=== PATIENT | female | born 1950 | race Caucasian/White ===

== ENCOUNTER 2018-08-17 13:56 | Day surgery (SDC) | payer MEDICARE, OTHER, SELFPAY ==
[2018-08-12 07:43] VITALS: BMI 43.5
[2018-08-17] VITALS (12 sets, daily range): BP systolic 113–155; BP diastolic 45–82; PULSE 68–98; RESP 10–18; TEMP 36.1–36.6; O2SAT 90–96; BMI 43.4
[2018-08-17] MEDS: LACTATED RINGERS 1,000 ML 42 ML IV ×2 (14:50→17:15)
--- NOTE | 2018-08-17 15:42 | PM.PREOP ---
Pre-operative Note Interval Note History & Physical reviewed/Exam performed by Physician: Yes Changes to H&P: No
[2018-08-17] MEDS: CEFAZOLIN VIAL 3 GM in SODIUM CHLORIDE 0.9% 100 ML 200 ML IV (15:57)
[2018-08-17] MEDS: BUPIVACAINE 0.5% W/ EPI (PF) VIAL 30 ML INJ (16:28)
--- NOTE | 2018-08-17 16:32 | SUR.OPER ---
Beach chair on padded OR bed. Head on gel donut secured with tape over gauze. Non-operative arm secured <90 degrees abduction on padded arm board. Pillow under knees. Safety belt at thigh. Cloth tape over blanket over lower legs.
--- NOTE | 2018-08-17 17:26 | PM.OP.1 ---
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 Open reduction and fixation of malunited greater tuberosity fracture 2. Suprascapular nerve block by surgeon for postoperative pain management. Same procedure as scheduled: Yes Indications: The patient is a 68-year-old woman who has sustained a fall with a greater tuberosity fracture on the left. This healed in a malunited position and has subsequently caused impingement when the patient raises her arm. She has failed non operative management with physical therapy and injections. After discussion the risks benefits and alternatives she has requested to proceed with open reduction and internal fixation of the malunited fragment. She is aware that this may take the form of removal of the prominence of her greater tuberosity and fixation of the rotator cuff into the bed. The risks benefits and alternatives of this procedure were discussed with her. Risks discussed included but were not limited to failure of the rotator cuff to heal, stiffness, infection, nerve damage, deep venous thrombosis, pulmonary embolism, stroke, myocardial infarction, permanent paralysis and . Surgeon: Jah Cantu Yarn Bleaching Machine Operator: Jacqueline Jules Click Yes if Unassisted: No Anesthesia Type: General, Peripheral nerve block and Local Operative Notes Findings: Prominence of the greater tuberosity immediately posterior to the biceps groove. Closure Type: primary Specimen(s): none sent Prosthetic devices, grafts, tissues, transplants, or devices: Implants used in this procedure included an Arthrex SpeedBridge implant system with BioComposite SwivelLock anchors. Applied: implant(s) Estimated Blood Loss (mL): 25 Blood products transfused: none Procedure in detail: The patient was seen in the preoperative area where she identified the left shoulder as the operative site and this was marked with my initials. She received preoperative antibiotics within appropriate 1st generation cephalosporin was taken to the operating room and placed on the operating room table in the supine position where she underwent a general anesthetic. She was then repositioned in the ?beach chair? position using the standard table. The left shoulder was protracted using a bump behind the scapula. All pressure points were well-padded. The left arm was prepared for the fingertips to the base the neck with ChloraPrep in the usual fashion and draped through sterile drapes. 10 mL of 0.5% Marcaine with epinephrine was injected into the suprascapular notch area to perform a suprascapular nerve block for postoperative pain control. An approximately 6 cm incision was created overlying the anterolateral corner of the acromion in Nelson's lines. Subcutaneous flaps were raised. The deltoid was split in line with its fibers and this was carried up onto the top of the acromion and the fascia was elevated using electrocautery. An oscillating saw was used to perform an acromioplasty to create more room for the repair. I palpated the biceps groove and the prominent greater tuberosity just behind it. A 2 cm tear was created in the rotator cuff with 1 limb of the tear going into the rotator interval and another limb going in line with the pull of the cuff about 2 cm posteriorly. A flap of rotator cuff was elevated off the prominent greater tuberosity. This was trimmed down using a rotating power bur. I checked multiple times by palpation until it felt like this was even with the remainder of the greater tuberosity. The rotator cuff was then fixed back down onto the bed that had been created with the bur. Two SwivelLock anchors were placed medially with suture tapes. The tapes were placed through the rotator cuff overlying the articular margin. The tapes were then divided and 1 limb from each tape was placed through each of the lateral suture anchors which were placed about cm and half further down the humerus laterally. This nicely reapposed the flap of rotator cuff that had been elevated. A #2 FiberWire suture was then used to close the rotator interval and the posterior incision in the cuff with a [id number] suture. The wound was copiously irrigated. The deltoid was reapproximated to the acromion using Ethibond sutures placed through bone tunnels in the acromion and the split in the deltoid was closed with a running 0 Vicryl. The subcutaneous was closed with interrupted 3 O Vicryl the skin with a running 4 0 Monocryl and Steri-Strips. Subcutaneous tissues were injected with 0.5% Marcaine with epinephrine for postoperative pain control in addition to the block. An Aquacel Ag dressing was applied and the patient was transported to the recovery room in good condition having tolerated the procedure well. Complications: none Condition: stable Disposition: PACU Plan for aftercare: The patient will be maintained on a standard medium size rotator cuff tear protocol with 6 weeks of passive range of motion and sling wear. She will be discharged home later this evening.
[2018-08-17] MEDS: fentaNYL 100 MCG/2 ML INJ 50 MCG IV (18:04)
--- NOTE | 2018-08-17 18:09 | SUR.PHASEI ---
attempted to place pt on her cpap, wrong connecter brought by pt and verified by . Pt placed on nasal cannula 02.. Pain treated with fentanyl.
[2018-08-17] MEDS: OXYCODONE/ACETAMINOPHEN 5/325 TABLET 1 TAB PO ×2 (18:15→18:42)
[2018-08-17] MEDS: hydrOXYzine pamoate 25 MG CAPSULE PO (18:15)
--- NOTE | 2018-08-17 18:17 | SUR.PHASEI ---
Pt still having pain, medicated with percocet and vistaril after apple sauce tolerated.
--- NOTE | 2018-08-17 18:18 | SUR.PHASEI ---
Pt has sats 94-97% on /l of .
--- NOTE | 2018-08-17 19:07 | SUR.PHASEII ---
Pt brought to opd, brought in, d/c instructions discussed, both voiced an understanding. Dressing to l shoulder remained c/d/i, neuro assessment to l hand unchanged as well. Pt assisted to dress, and left when ready and left in stable condition.
== END 2018-08-17 17:05 | disposition home or self-care (01) ==
PROVIDERS: Family Provider Specialist; PCP Family Medicine; Visit Provider Orthopaedic Surgery
PROC: (CPT 23630; principal; 2018-08-17 15:45)
DX: S42.252P Displaced fracture of greater tuberosity of left humerus, subsequent encounter for fracture with malunion (principal); S43.005D Unspecified dislocation of left shoulder joint, subsequent encounter; G47.33 Obstructive sleep apnea (adult) (pediatric); E66.9 Obesity, unspecified; I10 Essential (primary) hypertension; M19.90 Unspecified osteoarthritis, unspecified site; Z68.41 Body mass index [BMI] 40.0-44.9, adult
CPT/HCPCS: 23630; J0330; J0690; J1100; J1170; J2405; J2704; J3010

== ENCOUNTER → 2020-06-09 09:01 | Outpatient (CLI) | payer MEDICARE, OTHER, SELFPAY ==
[2020-06-09 10:26] LABS: COVID19 -Nasal RAPID Negative (Negative)
== END ==
PROVIDERS: Family Provider Specialist; PCP Family Medicine; Visit Provider Family Medicine Sleep Medicine
DX: Z01.812 Encounter for preprocedural laboratory examination (principal); Z20.828 Contact with and (suspected) exposure to other viral communicable diseases
CPT/HCPCS: 87635; C9803

== ENCOUNTER → 2020-06-15 12:31 | Outpatient (CLI) | payer MEDICARE, OTHER, SELFPAY ==
[2020-06-15 13:33] LABS: Add Manual Diff / Slide Review NO; Basophils Absolute Auto 0 /uL (0-100); Basophils Percent Auto 0.6 % (0-2); Eosinophils Absolute Auto 200 /uL (0-450); Eosinophils Percent Auto 3.5 % (2-4); Hematocrit 38.6 % (36-46); Hemoglobin 12.4 g/dL (12.0-16.0); Lymphocytes Absolute Auto 2200 /uL (1100-4500); Lymphocytes Percent Auto 31.2 % (25-40); Mean Corpuscular Hemoglobin 26.5 PG (26-34); Mean Corpuscular Volume 82.9 fL (80-100); Monocytes Absolute Auto 300 /uL (0-900); Monocytes Percent Auto 4.1 % (3-14); Neutrophils Absolute Auto 4300 /uL (1500-7000); Neutrophils Percent Auto 60.6 % (50-75); Platelet Count 331 X10^3/uL (150-400); Red Blood Cell Count 4.66 X10^6/uL (4.0-5.2); Red Cell Distribution Width 15.2 % (11.6-14.8); White Blood Cell Count 7.1 X10^3/uL (4.5-11.0)
[2020-06-15 13:34] LABS: Bilirubin Urine UA NEGATIVE (NEGATIVE); Color Urine UA YELLOW; Glucose Urine UA NEGATIVE (Negative); Ketones Urine UA NEGATIVE (NEGATIVE); Leukocyte Esterase Urine UA TRACE (NEGATIVE); Nitrite Urine UA NEGATIVE (Negative); Occult Blood Urine UA 1+ (Negative); Protein Urine UA NEGATIVE (Negative); Urobilinogen Urine UA 0.2 E.U./dL (0.2)
[2020-06-15 13:45] LABS: Appearance Urine UA Slightly Cloudy; pH Urine UA 6.5 (4.5-8.0)
[2020-06-15 13:47] LABS: RBC Urine 1-5/HPF (0-5/HPF); Squamous Epithelial Cell Urine 1-5 /HPF (0-5/HPF); WBC Urine 1-5/HPF (0-5/HPF)
[2020-06-15 13:48] LABS: Bacteria Urine Few (2-10); Culture Indicated Urine Specimen Cultured
[2020-06-15 13:52] LABS: Alanine Aminotransferase 23 IU/L (<35); Albumin Globulin Ratio 1.2 (1.0-2.8); Alkaline Phosphatase 130 U/L (38-126); Aspartate Aminotransferase 28 IU/L (14-36); BUN Creatinine Ratio 14.3 (6-22); Bilirubin Total 0.2 mg/dL (0.2-1.3); Blood Urea Nitrogen 16 mg/dL (7-17); Calcium 9.4 mg/dL (8.4-10.2); Carbon Dioxide 30 mmol/L (22-32); Chloride 106 mmol/L (98-107); Estimated Glomerular Filt Rate 48.2 mL/min (>60); Globulin 3.3 g/dL (1.7-4.1); Glucose 124 mg/dL (80-110); HEMOLYSIS < 15 (0-50); Potassium 4.7 mmol/L (3.4-5.1); Sodium 139 mmol/L (137-145); Total Protein 7.3 g/dL (6.3-8.2)
== END ==
PROVIDERS: Family Provider Specialist; PCP Family Medicine; Referring Provider Family Medicine; Visit Provider Family Medicine
DX: R19.7 Diarrhea, unspecified (principal); Z90.710 Acquired absence of both cervix and uterus; R10.9 Unspecified abdominal pain
CPT/HCPCS: 36415; 80053; 81001; 85025; 87086

== ENCOUNTER → 2020-06-19 12:58 | Outpatient (CLI) | payer MEDICARE, OTHER, SELFPAY ==
--- NOTE | 2020-06-19 13:06 | DI.CT.S_ITS ---
PROCEDURE: CT ABDOMEN PELVIS WO/W CON INDICATIONS: Abdominal pain and diarrhea TECHNIQUE: After the administration of oral contrast, 5 mm thick sections acquired from the diaphragms to the iliac crests. After the administration of intravenous contrast, 5 mm thick sections acquired from the diaphragms to the symphysis. 5 mm thick coronal and sagittal reformats were acquired. For radiation dose reduction, the following was used: automated exposure control, adjustment of mA and/or kV according to patient size. COMPARISON: None. FINDINGS: Image quality: Excellent. ABDOMEN: Lung bases: Lung bases are clear except for mild alveolar stranding at the medial right lung base. This may reflect scarring from a prior inflammatory event.. Heart size is normal. Solid organs: Liver is moderately enlarged in size and normal in enhancement, but there is diffuse fatty infiltration throughout the liver.. Gallbladder appears normal . Biliary system is non-dilated. Pancreas enhances at the pancreatic tail but there is pancreatic head and uncinate process fatty atrophy, without pancreatic ductal distension or pancreatic parenchymal calcifications.. Spleen is normal in size and enhancement. No adrenal nodules. Both kidneys are normal in size. No hydronephrosis or nephrolithiasis. Bowel and peritoneum: Stomach, small and large bowel loops are normal in caliber and wall thickness. No free fluid or air. Moderate colonic obstipation. Nodes and vessels: No retroperitoneal or mesenteric adenopathy by size criteria. Aorta and inferior vena are normal in caliber. Miscellaneous: No ventral hernias. PELVIS: Genitourinary: Bladder wall thickness is normal. Miscellaneous: No inguinal hernias or adenopathy. Moderate colonic obstipation, right greater than left. Bones: No suspicious bony lesions. No vertebral body compression fractures. IMPRESSION: Hepatomegaly with generalized fatty infiltration throughout the liver. No splenomegaly is seen. Note is made of generalized fatty atrophy of the pancreatic head and uncinate process and the pancreatic neck area. Pancreatic ductal distension or calcifications are not seen. Asymmetric colonic obstipation, right greater than left. No obstructive mass is found. Dictated by: Pepe Jernigan M.D. on 06/19/2020 at 14:54 Approved by: Pepe Jernigan M.D. on 06/19/2020 at 14:59
== END ==
PROVIDERS: Family Provider Specialist; PCP Family Medicine; Referring Provider Family Medicine; Visit Provider Family Medicine
DX: R19.7 Diarrhea, unspecified (principal); R10.9 Unspecified abdominal pain; K59.00 Constipation, unspecified; K76.0 Fatty (change of) liver, not elsewhere classified; Z90.710 Acquired absence of both cervix and uterus
CPT/HCPCS: 74178; Q9967

== ENCOUNTER → 2020-11-29 11:17 | Outpatient (CLI) | payer MEDICARE, OTHER, SELFPAY ==
[2020-11-29 12:24] LABS: Alanine Aminotransferase 45 IU/L (<35); Albumin Globulin Ratio 1.4 (1.0-2.8); Alkaline Phosphatase 87 U/L (38-126); Aspartate Aminotransferase 27 IU/L (14-36); BUN Creatinine Ratio 17.2 (6-22); Bilirubin Total 0.3 mg/dL (0.2-1.3); Blood Urea Nitrogen 33 mg/dL (7-17); Carbon Dioxide 21 mmol/L (22-32); Chloride 106 mmol/L (98-107); Estimated Glomerular Filt Rate 25.9 mL/min (>60); Globulin 2.9 g/dL (1.7-4.1); Glucose 110 mg/dL (80-110); HEMOLYSIS < 15 (0-50); Potassium 5.2 mmol/L (3.4-5.1); Sodium 136 mmol/L (137-145); Total Protein 6.9 g/dL (6.3-8.2)
== END ==
PROVIDERS: Family Provider Specialist; PCP Family Medicine; Referring Provider Family Medicine; Visit Provider Family Medicine
DX: N17.9 Acute kidney failure, unspecified (principal)
CPT/HCPCS: 36415; 80053

== ENCOUNTER 2021-01-12 16:37 | Emergency (ER) | payer MEDICARE, OTHER, SELFPAY ==
[2021-01-12 16:56] VITALS: BP 172/92; PULSE 114; RESP 20; TEMP 36.5; O2SAT 98; BMI 44.6
[2021-01-12 17:40] LABS: Add Manual Diff / Slide Review NO; Basophils Absolute Auto 100 /uL (0-100); Basophils Percent Auto 0.9 % (0-2); Eosinophils Absolute Auto 200 /uL (0-450); Eosinophils Percent Auto 1.8 % (2-4); Hematocrit 36.6 % (36-46); Hemoglobin 12.1 g/dL (12.0-16.0); Lymphocytes Absolute Auto 2200 /uL (1100-4500); Lymphocytes Percent Auto 23.1 % (25-40); Mean Corpuscular Volume 87.9 fL (80-100); Monocytes Absolute Auto 400 /uL (0-900); Monocytes Percent Auto 3.9 % (3-14); Neutrophils Absolute Auto 6600 /uL (1500-7000); Neutrophils Percent Auto 70.3 % (50-75); Platelet Count 328 X10^3/uL (150-400); Red Blood Cell Count 4.17 X10^6/uL (4.0-5.2); Red Cell Distribution Width 14.2 % (11.6-14.8); White Blood Cell Count 9.4 X10^3/uL (4.5-11.0)
[2021-01-12 18:01] LABS: BUN Creatinine Ratio 15.2 (6-22); Blood Urea Nitrogen 16 mg/dL (7-17); Calcium 9.9 mg/dL (8.4-10.2); Carbon Dioxide 27 mmol/L (22-32); Chloride 107 mmol/L (98-107); Glucose 146 mg/dL (80-110); HEMOLYSIS < 15 (0-50); Potassium 4.1 mmol/L (3.4-5.1); Sodium 142 mmol/L (137-145)
[2021-01-12 18:37] VITALS: BP 146/68; PULSE 100; RESP 18; TEMP 36.6; O2SAT 100
--- NOTE | 2021-01-12 19:29 | ED_ITS ---
HPI - General Adult General Chief complaint: Vaginal Bleeding Stated complaint: VAGINAL AND RECTAL BLEEDING Time Seen by Provider: 01/12/21 19:09 Source: patient Mode of arrival: Ambulatory Limitations: no limitations History of Present Illness HPI narrative: 70-year-old female who has had a history of endometriosis and vaginal bleeding. She has had a total hysterectomy and several months after having this started having vaginal bleeding once again. She has seen her telecom manager doctor for this and states that the endometriosis has returned inside of her vagina. Since this time she has developed a DVT/pulmonary embolism. She is on anticoagulation for this. Over the past day or so she has also started noticing blood in her stool. She states that there was some concern previously about having endometriosis in her colon but this is never been definitively diagnosed. She denies any chest pain. No shortness of breath. No belly pain. No vomiting. No urinary symptoms. No skin rashes. Related Data Previous Rx's Medication Instructions Recorded ropinirole 0.5 mg tablet 0.5 mg PO DAILY #90 tab 06/20/20 nortriptyline 50 mg capsule See Rx Instructions .ROUTE 07/18/20 .COMPLEX #180 cap omeprazole 40 mg capsule,delayed See Rx Instructions .ROUTE 07/18/20 release .COMPLEX #90 cap NS gabapentin 600 mg tablet 1,200 mg PO BEDTIME #180 tab 09/06/20 clobetasol 0.05 % topical ointment See Rx Instructions .ROUTE 10/03/20 .COMPLEX #30 g ropinirole 1 mg tablet See Rx Instructions .ROUTE 11/16/20 .COMPLEX #90 tab albuterol sulfate 90 mcg/actuation 2 puff INHALATION Q6H PRN #8 gram 11/29/20 aerosol inhaler (ProAir HFA) apixaban 5 mg tablet 5 mg PO BID #180 tab 11/29/20 nitroglycerin 0.4 mg sublingual 0.4 mg SUBLINGUAL Q5M PRN #25 tab 12/19/20 tablet (Nitrostat) rosuvastatin 5 mg tablet (Crestor) 5 mg PO DAILY #90 tab 12/19/20 Allergies Allergy/AdvReac Type Severity Reaction Status Date / Time chlorhexidine Allergy Severe rash, Verified 01/12/21 17:01 [From Hibiclens] burning sensation, joint pain Sulfa (Sulfonamide Allergy Unknown flu-like Verified 01/12/21 17:01 Antibiotics) symptoms fentanyl AdvReac Severe HAS NO Verified 01/12/21 17:01 REACTION megestrol [From Megace] AdvReac Severe embolism Verified 01/12/21 17:01 Review of Systems Constitutional Constitutional: Denies fever(s) Eyes Eyes: Reports system reviewed and no additional complaints, except as documented ENT Ears, Nose, Mouth, and Throat: Reports system reviewed and no additional comp laints, except as documented Cardiovascular Cardiovascular: Reports system reviewed and no additional complaints, except as documented Respiratory Respiratory: Reports system reviewed and no additional complaints, except as documented Gastrointestinal Gastrointestinal: Reports as per HPI and Reports system reviewed and no additional complaints, except as documented Genitourinary Genitourinary: Reports as per HPI Musculoskeletal Musculoskeletal: Reports system reviewed and no additional complaints, except as documented Integumentary/Breasts Skin/Breast: Reports system reviewed and no additional complaints, except as documented Neurologic Neurologic: Reports system reviewed and no additional complaints, except as documented Psychiatric Psychiatric: Reports system reviewed and no additional complaints, except as documented Hematologic/Lymphatic On Anticoagulants: Yes Allergic/Immunologic Allergic/Immunologic: Reports system reviewed and no additional complaints, except as documented Patient History Medical History Abdominal pain Acute kidney injury Asthma Bilateral hip pain Blood clots in stool CAD (coronary artery disease) Cervical somatic dysfunction Chronic bilateral low back pain with bilateral sciatica Chronic diarrhea Cough CRPS (complex regional pain syndrome) Diarrhea Dyspareunia Excessive daytime sleepiness Greater trochanteric pain syndrome of left lower extremity HTN (hypertension) Insomnia Left thigh pain Low back pain Lumbar region somatic dysfunction Mitral valve prolapse Mononucleosis Morbid obesity with BMI of 40.0-44.9, adult Neck pain Nocturnal hypoxemia Obstructive sleep apnea of adult Paroxysmal vertigo Pelvic somatic dysfunction Pneumonia Pulmonary embolism, bilateral Restless leg syndrome, controlled Sacral region somatic dysfunction Segmental and somatic dysfunction of abdomen and other regions Shallow breathing Shingles Somatic dysfunction of lower extremity Stiff neck Surgical History H/O cervical polypectomy History of hysterectomy History of knee replacement History of tonsillectomy Hx of Achilles tendon repair Status post dilation and curettage Status post endometrial ablation Status post rotator cuff repair Family History Mother Age: 94 Breast cancer Social History marital status: details: to Pepe household members: spouse lives independently: Yes caregiver/support person: No housing: house Smoking Status: Never smoker second hand exposure: Yes (socially) alcohol intake: current substance use type: does not use Smoking Status: Never smoker alcohol intake frequency: a few times a week Alcohol type: wine Substance Use Type: does not use Exam Initial Vital Signs Initial Vital Signs: Vital Signs Temperature 97.7 F 01/12/21 16:56 Pulse Rate 114 H 01/12/21 16:56 Respiratory Rate 20 01/12/21 16:56 Blood Pressure 172/92 H 01/12/21 16:56 Pulse Oximetry 98 01/12/21 16:56 Const General: cooperative and comfortable HENMT Head: normal to inspection and normocephalic Eyes General: appearance normal, both eyes and all related structures Neck Neck: normal visual inspection Resp Effort & Inspection: normal respiratory effort Cardio Rate: regular rate GI Inspection: normal to inspection Skin General: no rashes or lesions noted Neuro General: patient alert, patient awake and moves all extremities Extrem General: normal to inspection Psych Appearance: grossly normal and well kempt Course Orders Ordered: ED Orders 01/12/21 17:27 Basic Metabolic Panel Stat Complete Blood Count AUTO DIFF Stat Type and Screen Stat 01/12/21 19:50 Hemoglobin and Hematocrit Stat Vital Signs Vital signs: Vital Signs - 8 hr 01/12/21 18:37 01/12/21 19:54 01/12/21 20:43 Temperature 97.9 F Pulse Rate 100 H 97 H 97 H Respiratory Rate 18 18 16 Blood Pressure 146/68 H 170/73 H 156/77 H Pulse Oximetry 100 98 98 Medical Decision Making Lab Data Lab results reviewed: Yes I reviewed the patient's lab results. Result diagrams: 01/12/21 19:50 01/12/21 17:27 Labs: Lab Results 01/12/21 01/12/21 01/12/21 Range/Units 17:27 17:27 17:27 WBC 9.4 (4.5-11.0) X10^3/uL RBC 4.17 (4.0-5.2) X10^6/uL Hgb 12.1 (12.0-16.0) g/dL Hct 36.6 (36-46) % MCV 87.9 (80-100) fL MCH 29.0 (26-34) PG MCHC 33.0 (30-36) % RDW 14.2 (11.6-14.8) % Plt Count 328 (150-400) X10^3/uL Neut % (Auto) 70.3 (50-75) % Lymph % (Auto) 23.1 L (25-40) % [place] % (Auto) 3.9 (3-14) % Eos % (Auto) 1.8 L (2-4) % Baso % (Auto) 0.9 (0-2) % Neut # (Auto) 6600 (8143-0479) /uL Lymph # (Auto) 2200 (3798-5605) /uL [place] # (Auto) 400 (0-900) /uL Eos # (Auto) 200 (0-450) /uL Baso # (Auto) 100 (0-100) /uL Sodium 142 (137-145) mmol/L Potassium 4.1 (3.4-5.1) mmol/L Chloride 107 (98-107) mmol/L Carbon Dioxide 27 (22-32) mmol/L BUN 16 (7-17) mg/dL Creatinine 1.05 H (0.52-1.04) mg/dL Estimated GFR 52.0 L (>60) mL/min BUN/Creatinine Ratio 15.2 (6-22) Glucose 146 H (80-110) mg/dL Calcium 9.9 (8.4-10.2) mg/dL Blood Type A Positive Antibody Screen Negative 01/12/21 Range/Units 19:50 WBC (4.5-11.0) X10^3/uL RBC (4.0-5.2) X10^6/uL Hgb 11.5 L (12.0-16.0) g/dL Hct 34.7 L (36-46) % MCV (80-100) fL MCH (26-34) PG MCHC (30-36) % RDW (11.6-14.8) % Plt Count (150-400) X10^3/uL Neut % (Auto) (50-75) % Lymph % (Auto) (25-40) % [place] % (Auto) (3-14) % Eos % (Auto) (2-4) % Baso % (Auto) (0-2) % Neut # (Auto) (4065-1061) /uL Lymph # (Auto) (3737-8538) /uL [place] # (Auto) (0-900) /uL Eos # (Auto) (0-450) /uL Baso # (Auto) (0-100) /uL Sodium (137-145) mmol/L Potassium (3.4-5.1) mmol/L Chloride (98-107) mmol/L Carbon Dioxide (22-32) mmol/L BUN (7-17) mg/dL Creatinine (0.52-1.04) mg/dL Estimated GFR (>60) mL/min BUN/Creatinine Ratio (6-22) Glucose (80-110) mg/dL Calcium (8.4-10.2) mg/dL Blood Type Antibody Screen Urine Dip Bedside Urine Glucose Negative Bedside Urine Bilirubin - Negative Bedside Urine Ketone - Negative Urine Specific Vaughn 1.020 Bedside Urine Occult Blood +++ Bedside Urine pH 6.0 Bedside Urine Protein +/- 15 Bedside Urine Urobilinogen - Negative Bedside Urine Nitrite - Negative Bedside Urine Leukocytes +/- 15 Esterase Point of care testing: Urine Dip Bedside Urine Glucose Negative Bedside Urine Bilirubin - Negative Bedside Urine Ketone - Negative Urine Specific Vaughn 1.020 Bedside Urine Occult Blood +++ Bedside Urine pH 6.0 Bedside Urine Protein +/- 15 Bedside Urine Urobilinogen - Negative Bedside Urine Nitrite - Negative Bedside Urine Leukocytes +/- 15 Esterase MDM Narrative Medical decision making narrative: Patient is nontoxic appearing. Her labs are stable over time here in the emergency department. I feel that we can hold on any radiologic studies for now. No indication for surgical consultation. Will have her continue to take her anticoagulation is I feel right now the benefits of this outweigh the risks. She was given strict return precautions with regard to blood loss. Informed her that she should contact her primary doctor and u lcer telecom manager doctor. She may need a referral to see General surgery to have a colonoscopy. She was given return precautions and follow-up instructions. She expressed understanding agreement. Discharge Plan Departure Patient Disposition: Home Clinical Impression: Vaginal bleeding, Rectal bleeding Instructions: DI for Vaginal Bleeding Activity Restrictions/Additional Instructions: I do recommend that you continue on your anticoagulation. On Friday contact your primary doctor is you will need to discuss the indications for a colonoscopy. Return to the emergency department for any new or worsening symptoms like we discussed. Prescriptions: No Action ropinirole 0.5 mg tablet 0.5 mg PO DAILY Qty: 90 RF: 1 omeprazole 40 mg capsule,delayed release(DR/EC) See Rx Instructions .ROUTE .COMPLEX Qty: 90 RF: 3 nortriptyline 50 mg capsule See Rx Instructions .ROUTE .COMPLEX Qty: 180 RF: 3 gabapentin 600 mg tablet 1,200 mg PO BEDTIME Qty: 180 RF: 1 clobetasol 0.05 % ointment See Rx Instructions .ROUTE .COMPLEX Qty: 30 RF: 3 ropinirole 1 mg tablet See Rx Instructions .ROUTE .COMPLEX Qty: 90 RF: 3 rosuvastatin [Crestor] 5 mg tablet 5 mg PO DAILY Qty: 90 RF: 3 nitroglycerin [Nitrostat] 0.4 mg tablet, sublingual 0.4 mg sublingual Q5M PRN (Reason: chest pain) Qty: 25 RF: 0 apixaban 5 mg tablet 5 mg PO BID Qty: 180 RF: 3 albuterol sulfate [ProAir HFA] 90 mcg/actuation HFA aerosol inhaler 2 puff INHALATION Q6H PRN (Reason: shortness of breath or wheezing) Qty: 8 RF: 5 Referrals: Jonathon Fregoso DO [Primary Care Provider] -
[2021-01-12 19:54] VITALS: BP 170/73; PULSE 97; RESP 18; O2SAT 98
[2021-01-12 19:57] LABS: Hematocrit 34.7 % (36-46); Hemoglobin 11.5 g/dL (12.0-16.0)
[2021-01-12 20:43] VITALS: BP 156/77; PULSE 97; RESP 16; O2SAT 98
== END 2021-01-12 20:44 | disposition home or self-care (01) ==
PROVIDERS: Emergency Medicine; Emergency Provider Emergency Medicine; Family Provider Specialist; PCP Family Medicine
DX: N93.9 Abnormal uterine and vaginal bleeding, unspecified (principal); K62.5 Hemorrhage of anus and rectum; N80.4 Endometriosis of rectovaginal septum and vagina; Z79.01 Long term (current) use of anticoagulants
CPT/HCPCS: 36415; 80048; 81003; 85014; 85018; 85025; 86850; 86900; 86901; 99283

== ENCOUNTER → 2021-02-15 10:25 | Outpatient (CLI) | payer MEDICARE, OTHER, SELFPAY ==
[2021-02-15 10:52] LABS: BUN Creatinine Ratio 18.8 (6-22); Blood Urea Nitrogen 18 mg/dL (7-17); Estimated Glomerular Filt Rate 57.6 mL/min (>60)
== END ==
PROVIDERS: Family Provider Specialist; PCP Family Medicine; Referring Provider Family Medicine; Visit Provider Family Medicine
DX: N17.9 Acute kidney failure, unspecified (principal)
CPT/HCPCS: 36415; 82565; 84520

== ENCOUNTER → 2021-02-16 12:16 | Outpatient (CLI) | payer MEDICARE, OTHER, SELFPAY ==
--- NOTE | 2021-02-16 12:17 | DI.CT.S_ITS ---
PROCEDURE: CT ANGIO CHEST PE PROTOCOL INDICATIONS: f/u PE TECHNIQUE: After the administration of intravenous contrast, 2 mm thick sections acquired from the pulmonary apices to the posterior costophrenic angles. 3-dimensional maximum intensity projection (MIP) coronal and sagittal reformats were then acquired through the thorax. For radiation dose reduction, the following was used: automated exposure control, adjustment of mA and/or kV according to patient size. COMPARISON: [facility], CT, CT ANGIO CHEST PE, 11/21/2020, 17:56. FINDINGS: Lungs: Scattered subsegmental atelectasis and/or scarring. No focal consolidation. Pleura: No pleural effusion or pneumothorax. Heart: Heart size is normal. No pericardial effusion. Chest nodes: Shotty right paratracheal and mediastinal/subcarinal lymph nodes without definite pathologic enlargement by size criteria. Thyroid gland: Negative. Aorta: Normal in size. Pulmonary arteries: There is at least near complete resolution of emboli seen on the prior study. Currently, no definite large or central intraluminal filling defects. There is poor contrast opacification of the segmental and subsegmental arteries, which precludes accurate evaluation. Esophagus: Normal. Upper abdomen: Mildly enlarged portal caval and sheela hepatis lymph nodes as before. Bones: Normal. IMPRESSION: No evidence of pulmonary embolism within the central/large pulmonary arteries. There is poor contrast opacification of the segmental and subsegmental vessels. Scattered subsegmental atelectasis and/or scarring. No focal consolidation. Dictated by: Charles El M.D. on 02/16/2021 at 13:29 Approved by: Charles El M.D. on 02/16/2021 at 13:36
== END ==
PROVIDERS: Family Provider Specialist; PCP Family Medicine; Referring Provider Family Medicine; Visit Provider Family Medicine
DX: I26.99 Other pulmonary embolism without acute cor pulmonale (principal)
CPT/HCPCS: 71275; Q9967

== ENCOUNTER 2023-10-22 09:27 | Day surgery (SDC) | payer MEDICARE, OTHER, SELFPAY ==
[2023-10-16 13:53] VITALS: BMI 44.4
--- NOTE | 2023-10-21 15:25 | P.HP_ITS ---
History of Present Illness History of Present Illness Date Patient Seen: 10/22/23 Chief complaint: Excision of R neck mass Narrative: 73F here for excision of right neck mass. No interval change in health. Stopped Ozepmic and Eliquis as requested. [facility] Medical History (Updated 10/16/23 @ 14:03 by Marsha Travis RN) Anesthesia complication Diabetes type 2, controlled Lipoma of neck Restless leg syndrome due to iron deficiency anemia Hearing loss Bilateral lower extremity edema Acute midline low back pain without sciatica Endometriosis Left thigh pain CAD (coronary artery disease) Blood clots in stool Pulmonary embolism, bilateral Acute kidney injury Chronic diarrhea Somatic dysfunction of lower extremity Segmental and somatic dysfunction of abdomen and other regions Pelvic somatic dysfunction Sacral region somatic dysfunction Lumbar region somatic dysfunction Cervical somatic dysfunction Stiff neck Chronic bilateral low back pain with bilateral sciatica Greater trochanteric pain syndrome of left lower extremity Nocturnal hypoxemia Abdominal pain Diarrhea CRPS (complex regional pain syndrome) Cough Restless leg syndrome, controlled HTN (hypertension) Shallow breathing Insomnia Shingles Mononucleosis Pneumonia Mitral valve prolapse Dyspareunia Asthma Neck pain Paroxysmal vertigo Low back pain Bilateral hip pain Morbid obesity with BMI of 40.0-44.9, adult Excessive daytime sleepiness Obstructive sleep apnea of adult Surgical History History of hysterectomy H/O cervical polypectomy Hx of Achilles tendon repair Status post rotator cuff repair Status post endometrial ablation Status post dilation and curettage History of knee replacement History of tonsillectomy Family History Mother Age: 96 Breast cancer Social History marital status: details: jeri Cantu household members: spouse lives independently: Yes caregiver/support person: No housing: house Smoking Status: Never smoker second hand exposure: Yes (socially) alcohol intake: current substance use type: does not use Meds Home Medications and Allergies Home Medications Medication Instructions Recorded Confirmed Type nitroglycerin 0.4 mg sublingual 0.4 mg sublingual Q5M PRN chest 12/19/20 10/02/23 Rx tablet (Nitrostat) pain #25 tabs Handi Cap Placard #1 ea 03/28/21 10/02/23 Rx Disabled Parking Permit #1 ea 04/09/22 10/02/23 Rx apixaban 5 mg tablet (Eliquis) See Rx Instructions .Route 11/01/22 10/22/23 Rx .COMPLEX #180 tabs nortriptyline 50 mg capsule See Rx Instructions .Route 12/03/22 10/22/23 Rx .COMPLEX #180 caps ropinirole 1 mg tablet See Rx Instructions .Route 08/06/23 10/22/23 Rx .COMPLEX #90 tabs omeprazole 40 mg capsule,delayed 40 mg PO DAILY #90 caps 08/13/23 10/22/23 Rx release gabapentin 600 mg tablet 1,200 mg (2 x 600 mg) PO BEDTIME 09/03/23 10/22/23 Rx #180 tabs semaglutide 1 mg/dose (4 mg/3 mL) 1 mg SUBCUT QWEEK 09/03/23 10/22/23 History subcutaneous pen injector rosuvastatin 5 mg tablet 5 mg PO DAILY #90 tabs 09/10/23 10/22/23 Rx cyclosporine 0.05 % eye drops in a drp EYE-BOTH 10/02/23 10/02/23 History dropperette (Restasis) Allergies Allergy/AdvReac Type Severity Reaction Status Date / Time chlorhexidine Allergy Severe rash, Verified 10/22/23 09:41 [From Hibiclens] burning sensation, joint pain Sulfa (Sulfonamide Allergy Unknown flu-like Verified 10/22/23 09:41 Antibiotics) symptoms fentanyl AdvReac Severe HAS NO Verified 10/22/23 09:41 REACTION megestrol [From Megace] AdvReac Severe embolism Verified 10/22/23 09:41 Exam Narrative Exam Narrative: General adult woman alert oriented no acute distress Neck right lateral neck mass marked with my initials Chest nonlabored respiration Extremities warm well perfused Assessment & Plan Assessment and plan (1) Neoplasm of unspecified behavior of bone, soft tissue, and skin: Status: Acute Assessment & Plan narrative: 73-year-old woman with a R soft tissue neck mass here for elective excision. Overview of the operation again discussed. Risks including hemorrhage, infection damage to surrounding structures reviewed. She provides consent to proceed.
--- NOTE | 2023-10-22 | PATH_ITS ---
[facility] Accession Number: [id number] No. of containers..01 Tissue . 01 Material submitted: . neck - RIGHT NECK MASS . 01 Diagnosis: SOFT TISSUE, RIGHT NECK MASS, EXCISION: Mature adipose tissue, consistent with lipoma. Three benign lymph nodes. MRV 10/28/2023 1446 Local . 01 Electronically signed: . Nayana Mackay MD, Pathologist NPI- [id number] . 01 Gross description: . Received in formalin with two identifiers and right neck mass, is a yellow, lobulated, soft tissue fragment with a roughened external surface measuring 3.6 x 2.5 x 1.9 cm. Inked blue. yellow, soft adipose with three well-circumscribed chaparro nodules measuring 0.1, 0.3, and 0.5 cm in greatest dimension. T[employer] Shear Operator sections are submitted as follows: . A1-A2: Adjacent sections with two distinct nodules. A3: Additional sections with one distinct nodule. ([id number]) /MRV 10/24/2023 2159 Local . 01 Pathologist provided ICD-10: D17.9 . 01 CPT . 565281 Specimen Comment: A courtesy copy of this report has been sent to [phone] Performed at: 01 [facility] [address] [place] [address] [address], [place], [place] [id number] MD Umesh Miranda MD Phone: [phone]
[2023-10-22 09:49] VITALS: BP 180/81; PULSE 87; RESP 18; TEMP 36.1; O2SAT 99; BMI 44.4
[2023-10-22] MEDS: LACTATED RINGERS 1,000 ML 42 ML IV (10:01)
--- NOTE | 2023-10-22 10:04 | PM.OP.1 ---
Operative Date/Time/Diagnoses Date of procedure: 10/22/23 Time of procedure: 10:51 Pre-op diagnosis: Right neck soft tissue mass 4 cm Procedure & Clinicians Procedure: Excision of right soft tissue mass 4 cm Same procedure as scheduled: Yes Indications: Symptomatic enlarging right neck mass Surgeon: Yves Campbell Banking Representative: Christos Rangel Anesthesia Type: Sedation Operative Notes Findings: 4 cm soft tissue mass consistent with lipoma Specimen(s): other (Right neck mass) Estimated Blood Loss (mL): 10 Procedure in detail: Patient was brought to the operating room placed supine on the table. She received Ancef prior to skin incision. Sedation was administered by anesthesia. She was prepped and draped in sterile fashion. Time-out was performed. 0.25% bupivacaine was infiltrated into the skin of the right lateral neck. Incision was made in the skin crease adjacent to the mass. Subcutaneous tissue was divided. We encountered a 4 cm soft tissue mass that was above the level of the sternocleidomastoid. Was dissected out with electrocautery. It was passed off the field specimen. It is consistent see was insistent with a lipoma. Hemostasis was achieved. Wound was irrigated. The subcutaneous tissue was closed with Vicryl suture and the skin closed with Dermabond. Complications: none Post-operative Condition: stable Disposition: same day surgery
[2023-10-22 10:46] VITALS: BP 144/68; PULSE 83; RESP 15; TEMP 36.9; O2SAT 98
--- NOTE | 2023-10-22 10:49 | SUR.PHASEII ---
Addendum entered by Benito Whitmore R.N. 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
[2023-10-22 10:52] VITALS: BP 156/73; PULSE 82; RESP 14; TEMP 36.7; O2SAT 96
[2023-10-22 11:00] VITALS: BP 157/79; PULSE 80; RESP 15; TEMP 36.7; O2SAT 97
[2023-10-22] MEDS: HYDROCODONE/ACET 5/325 TABLET 1 TAB PO (11:11)
== END 2023-10-22 11:25 | disposition home or self-care (01) ==
PROVIDERS: Family Provider Specialist; PCP Family Medicine; Referring Provider Surgery; Visit Provider Surgery
PROC: (CPT 21552; principal; 2023-10-22 10:45)
DX: D17.0 Benign lipomatous neoplasm of skin and subcutaneous tissue of head, face and neck (principal)
CPT/HCPCS: 21552; J2405; J2704; J3010

== ENCOUNTER → 2024-09-24 11:47 | Outpatient (CLI) | payer MEDICARE, OTHER, SELFPAY ==
[2024-09-24 12:58] LABS: Add Manual Diff / Slide Review NO; Basophils Absolute Auto 0 /uL (0-100); Basophils Percent Auto 0.8 % (0-2); Eosinophils Absolute Auto 100 /uL (0-450); Eosinophils Percent Auto 1.3 % (2-4); Hematocrit 39.3 % (36-46); Hemoglobin 13.1 g/dL (12.0-16.0); Lymphocytes Absolute Auto 1900 /uL (1100-4500); Lymphocytes Percent Auto 32.9 % (25-40); Mean Corpuscular HGB Conc 33.3 % (30-36); Mean Corpuscular Hemoglobin 30.4 PG (26-34); Mean Corpuscular Volume 91.2 fL (80-100); Monocytes Absolute Auto 200 /uL (0-900); Monocytes Percent Auto 4.3 % (3-14); Neutrophils Absolute Auto 3400 /uL (1500-7000); Neutrophils Percent Auto 60.7 % (50-75); Platelet Count 281 X10^3/uL (150-400); Red Blood Cell Count 4.31 X10^6/uL (4.0-5.2); Red Cell Distribution Width 13.7 % (11.6-14.8); White Blood Cell Count 5.7 X10^3/uL (4.5-11.0)
[2024-09-24 13:17] LABS: HEMOLYSIS < 15 (0-50); Hemoglobin A1C% w Est Avg Glu 5.4 % (4.0-6.0); Iron 73 ug/dL (37-170)
[2024-09-24 13:18] LABS: Cholesterol 139 mg/dL (140-199); HDL Cholesterol 40 mg/dL (40-60); LDL Cholesterol Calculated 77 mg/dL (<100); Triglycerides 112 mg/dL (35-150)
[2024-09-24 13:29] LABS: Percent Iron Saturation 29 % (15-50); Total Iron Binding Capacity 254 ug/dL (265-497); Transferrin 199 mg/dL (206-381)
[2024-09-24 13:49] LABS: Creatinine Urine Random 46.12 mg/dL
[2024-09-24 13:56] LABS: Microalbumin Urine Random < 0.6 mg/dL (0-1.6)
== END ==
PROVIDERS: PCP Family Medicine; Referring Provider Family Medicine; Visit Provider Family Medicine
DX: E11.9 Type 2 diabetes mellitus without complications (principal); I25.10 Atherosclerotic heart disease of native coronary artery without angina pectoris; I10 Essential (primary) hypertension; G25.81 Restless legs syndrome; D50.9 Iron deficiency anemia, unspecified
CPT/HCPCS: 36415; 80061; 82043; 82570; 83036; 83540; 83550; 85025

== ENCOUNTER → 2024-09-30 11:32 | Outpatient (CLI) | payer MEDICARE, OTHER, SELFPAY ==
[2024-09-30 13:24] LABS: Ferritin 127 ng/mL (11-264)
== END ==
PROVIDERS: PCP Family Medicine; Referring Provider Family Medicine; Visit Provider Family Medicine
DX: D50.9 Iron deficiency anemia, unspecified (principal); G25.81 Restless legs syndrome
CPT/HCPCS: 36415; 82728

== ENCOUNTER → 2024-11-10 16:16 | Outpatient (CLI) | payer MEDICARE, OTHER, SELFPAY | PROVIDERS: PCP Family Medicine; Visit Provider Family Medicine | DX: R46.89 Other symptoms and signs involving appearance and behavior (principal) | CPT/HCPCS: 87086 ==

== ENCOUNTER → 2024-11-10 16:22 | Outpatient (CLI) | payer MEDICARE, OTHER, SELFPAY ==
--- NOTE | 2024-11-10 16:25 | DI.CT.S_ITS ---
PROCEDURE: CT HEAD/BRAIN WO CON INDICATIONS: altered mental status TECHNIQUE: Noncontrast 4.5 mm thick angled axial sections acquired from the foramen magnum to the vertex, with coronal and sagittal reformats. For radiation dose reduction, the following was used: automated exposure control, adjustment of mA and/or kV according to patient size. COMPARISON: None. FINDINGS: Image quality: Diagnostic. CSF spaces: Basal cisterns are patent. No extra-axial fluid collections. The ventricles are symmetric in size and shape. Brain: No intracranial bleeds or mass effect. There is cerebral volume loss, with resultant ventricular and sulcal prominence. There are periventricular and deep white matter chronic small vessel ischemic changes. There is intracranial internal carotid artery atherosclerosis. Skull and face: Calvarium and visualized facial bones appear intact, without suspicious lesions. Sinuses: Visualized sinuses and mastoids are clear. IMPRESSION: No acute intracranial pathology. Dictated by: Adán Batres M.D. on 11/10/2024 at 16:46 Approved by: Adán Batres M.D. on 11/10/2024 at 16:46
== END ==
PROVIDERS: PCP Family Medicine; Referring Provider Family Medicine; Visit Provider Family Medicine
DX: R40.0 Somnolence (principal); R46.89 Other symptoms and signs involving appearance and behavior
CPT/HCPCS: 70450; 87086

== ENCOUNTER → 2025-03-03 08:02 | Outpatient (CLI) | payer MEDICARE, OTHER, SELFPAY | PROVIDERS: PCP Family Medicine; Referring Provider Internal Medicine Critical Care Medicine; Visit Provider Internal Medicine Critical Care Medicine | DX: R06.02 Shortness of breath (principal); R94.2 Abnormal results of pulmonary function studies | CPT/HCPCS: 94060; 94726; 94729 ==